=== PATIENT | female | born 1955 | race Caucasian/White ===

== ENCOUNTER 2016-11-04 20:43 | Emergency (ER) | payer MEDICARE | END 2016-11-04 23:53 | disposition home or self-care (01) | LOC: D.ER 20:43 | DX: S99.922A Unspecified injury of left foot, initial encounter (principal); W22.8XXA Striking against or struck by other objects, initial encounter; Y93.89 Activity, other specified; Y92.019 Unspecified place in single-family (private) house as the place of occurrence of the external cause; S90.32XA Contusion of left foot, initial encounter; M25.475 Effusion, left foot; F17.200 Nicotine dependence, unspecified, uncomplicated ==